=== PATIENT | female | born 1980 | race Caucasian/White ===

== ENCOUNTER 2020-01-21 13:19 | Emergency (ER) | payer OTHER ==
[2020-01-21 13:27] VITALS: TEMP 97.8; BMI 31.2
[2020-01-21] MEDS ORDERED: SODIUM CHLORIDE 1,000 ML IV STA (13:27)
[2020-01-21] MEDS ORDERED: METOCLOPRAMIDE HCL INJECTION 10 MG/2 ML VIAL IVPB ONE (13:27)
--- NOTE | 2020-01-21 13:28 | PDOC ---
Rapid Medical Evaluation Chief Complaint: Headache Time Seen by Provider: 01/21/20 13:23 Medical Evaluation: 01/21/20 13:23 The patient is a 39 y/o F with PMH of migraines presents with a r sided headache for the past two weeks. She states that she ran out of her usual medications (imitrex) because her doctor "went out of business". States she vomited outside. Admits to nausea, vomiting, fatigue and photophobia. Took excedrin at 10pm. Exam: appears uncomfortable. No gross neuro deficits. Wearing sunglasses Orders: meds, IV, labs PT to proceed to the ER for further evaluation
--- NOTE | 2020-01-21 13:51 | PDOC ---
History of Present Illness - General Chief Complaint: Headache Stated Complaint: HEADACHE Time Seen by Provider: 01/21/20 13:23 History Source: Patient Exam Limitations: No Limitations - History of Present Illness Initial Comments: 01/21/20 14:27 39-year-old female with history of migraine presents to ED with complaints of throbbing pressure to the right side of her head which she states is been present pretty much for the past 2 weeks constantly with no relief with Excedrin. Patient states used to take Imitrex but since she ran out had none for this episode. Patient denies any atypical symptoms such as visual changes nausea but does state generalized fatigue which she states has never been to this extremity. Patient states neurologist is in the [place] and she previously resided there up until a few months ago. Patient states had a head CT done approximately 5 years ago upon initial diagnosis. Patient denies fever, chills, chest pain, shortness of breath or urinary complaints. Timing/Duration: reports: other (2 weeks) Severity: Yes: moderate Past History - Travel History Traveled outside of the country in the last 30 days: No Close contact w/someone who was outside of country & ill: No - Medical History Allergies/Adverse Reactions: Allergies Allergy/AdvReac Type Severity Reaction Status Date / Time No Known Allergies Allergy Verified 01/21/20 13:59 - Psycho-Social/Smoking History Patient Lives Alone: No Lives with/in: spouse/SO Smoking History: Never smoked Information on smoking cessation initiated: No - Substance Abuse Hx (Audit-C & DAST Scrn) How often the patient has a drink containing alcohol: Never Score: In Men: 4 or > Positive; In Women: 3 or > Positive: 0 Screen Result (Pos requires Nsg. Audit-10AR): Negative In the last yr the pt used illegal drug/Rx for NonMed reason: No Score: Yes response is considered Positive: 0 Screen Result (Positive result requires Nsg. DAST-10): Negative Neuro Specific PMHX - Complaint Specific PMHX Migraine: Yes Review of Systems - Review of Systems Able to Perform ROS?: Yes Constitutional: Yes: Weakness HEENTM: No: Symptoms Reported Respiratory: No: Symptoms reported Cardiac (ROS): No: Symptoms Reported ABD/GI: No: Symptoms Reported : No: Symptoms Reported Musculoskeletal: No: Symptoms Reported Integumentary: No: Symptoms Reported Neurological: Yes: Headache *Physical Exam - Vital Signs Last Vital Signs Temp Pulse Resp BP Pulse Ox 97.8 F 102 H 17 158/96 99 01/21/20 13:21 01/21/20 13:21 01/21/20 13:21 01/21/20 13:21 01/21/20 13:21 - Physical Exam General Appearance: Yes: Nourished, Appropriately Dressed. No: Apparent Distress HEENT: negative: Pale Conjunctivae Neck: positive: Normal Thyroid Respiratory/Chest: positive: Lungs Clear, Normal Breath Sounds. negative: Respiratory Distress, Accessory Muscle Use Cardiovascular: positive: Regular Rhythm, Tachycardia. negative: Murmur Vascular Pulses: Dorsalis-Pedis (R): 2+, Doralis-Pedis (L): 2+ Integumentary: positive: Normal Color, Warm, Moist Neurologic: positive: Motor Strength 5/5 (Ambulatory) ED Treatment Course - LABORATORY CBC & Chemistry Diagram: 01/21/20 13:45 01/21/20 13:45 Medical Decision Making - Medical Decision Making 01/21/20 14:30 Chief complaint: Migraine for the past 2 weeks she describes a throbbing pressure to the right side of her head along with fatigue. Unrelieved with Excedrin. Exam: Patient in no acute distress but with wearing eyeglasses vital signs stable otherwise. Plan: Labs, urine, IV medication and fluids ordered along with a head CT 01/21/20 15:40 Laboratory Tests 01/21/20 01/21/20 13:45 13:45 WBC 5.8 Hgb 13.3 Hct 39.3 Absolute Neuts (auto) 3.5 Neutrophils % 60.1 Sodium 142 Potassium 3.7 Chloride 110 H Carbon Dioxide 24 Anion Gap 8 BUN 12.6 Creatinine 0.9 Random Glucose 168 H Calcium 9.4 Total Bilirubin 0.3 AST 21 ALT 23 Alkaline Phosphatase 91 Total Protein 7.[address] negative for acute pathology. Patient states moderate effect relief with medication. Will add Toradol 01/21/20 16:24 Patient states feeling better. Will discharge patient with Fioricet. Discharge - Discharge Information Problems reviewed: Yes Clinical Impression/Diagnosis: Migraine Condition: Improved Disposition: HOME - Follow up/Referral - Patient Discharge Instructions Patient Printed Discharge Instructions: DI for Migraine Additional Instructions: Take medication as prescribed. Drink plenty of fluids, and avoid bright loud hot places - Post Discharge Activity
[2020-01-21 14:26] LABS: BASO % 0.7 % (0-2.0); EOS % 1.2 % (0-4.5); HEMATOCRIT 39.3 % (32.4-45.2); HEMOGLOBIN 13.3 GM/dL (10.7-15.3); LYMPH % 29.5 % (8-40); MCH 28.3 pg (25.7-33.7); MCHC 33.9 g/dl (32.0-36.0); MEAN CELL VOLUME 83.6 fl (80-96); MEAN PLT VOLUME 9.6 fl (7.5-11.1); MONO % 8.5 % (3.8-10.2); NEUT % 60.1 % (42.8-82.8); PLATELET COUNT 256 K/MM3 (134-434); RBC 4.69 M/mm3 (3.60-5.2); RDW 13.2 % (11.6-15.6); WHITE BLOOD COUNT 5.8 K/mm3 (4.0-10.0)
[2020-01-21 14:51] LABS: ALBUMIN 4.1 g/dl (3.4-5.0); BILIRUBIN,TOTAL 0.3 mg/dL (0.2-1); BLOOD UREA NITROGEN 12.6 mg/dL (7-18); CALCIUM 9.4 mg/dL (8.5-10.1); CREATININE 0.9 mg/dL (0.55-1.3); POTASSIUM 3.7 mmol/L (3.5-5.1); TOT PROT 7.8 g/dl (6.4-8.2)
[2020-01-21] MEDS ORDERED: KETOROLAC TROMETHAMINE 30 MG/1 ML VIAL IVPUSH ONE (15:39)
[2020-01-21] MEDS ORDERED: KETOROLAC TROMETHAMINE 30 MG/1 ML VIAL ONE (15:48)
[2020-01-21 16:28] VITALS: BP 130/87; PULSE 68
[2020-01-21 18:32] LABS: HCG,QUALITATIVE URINE Negative
[2020-01-21 18:35] LABS: PH,URINE 5.5 (5.0-8.0); URINE APPEARANCE CLEAR; URINE BILIRUBIN NEGATIVE (NEGATIVE); URINE COLOR YELLOW; URINE GLUCOSE (UA) NEGATIVE (NEGATIVE); URINE KETONE NEGATIVE (NEGATIVE); URINE LEUK ESTERASE NEGATIVE (NEGATIVE); URINE NITRITE NEGATIVE (NEGATIVE); URINE PROTEIN NEGATIVE (NEGATIVE); URINE UROBILINOGEN 0.2 mg/dL (0.2-1.0)
== END 2020-01-21 16:51 | disposition home or self-care (01) ==
LOC: JER 13:19
PROC: 3E033NZ Introduction of Analgesics, Hypnotics, Sedatives into Peripheral Vein, Percutaneous Approach (ICD-10-PCS; principal; 2020-01-21)
PROC: 3E033GC Introduction of Other Therapeutic Substance into Peripheral Vein, Percutaneous Approach (ICD-10-PCS; 2020-01-21)
PROC: 3E0337Z Introduction of Electrolytic and Water Balance Substance into Peripheral Vein, Percutaneous Approach (ICD-10-PCS; 2020-01-21)
DX: G43.909 Migraine, unspecified, not intractable, without status migrainosus (principal)
CPT/HCPCS: 36415; 70450-TC; 80053; 81003; 84703; 85025; 99285-25